=== PATIENT | female | born 1950 | race Caucasian/White ===

== ENCOUNTER 2021-05-10 21:50 | Emergency (ER) | payer MEDICARE ==
[~2021-05-10 21:50] MED LIST: ASPIRIN CHEWABL81 MG PO; ATIVAN1 MG PO; CARAFATE1 GM PO; COLCHICINE 0.60.6 MG PO; DEXILANT60 MG PO; FEOSOL325 MG PO; FUROSEMIDE20 MG PO; IMDUR ER TAB 3030 MG PO; IPRAT-ALBUT 0.5-3 ML NEB; K-DUR TAB 10 M10 MEQ PO; LASIX20 MG PO; LASIX40 MG PO; LISINOPRIL-HCT1 EAC1 PO; LOPRESSOR 25 MG25 MG PO; MYCOSTATIN100000 UTS PO; NORVASC 5 MG TAB5 MG PO; OXYCODONE HCL10 MG PO; PRAVACHOL20 MG PO; PRINIVIL5 MG PO; PROTONIX40 MG PO; ZANAFLEX4 MG PO; ZANTAC150 MG PO; ZOLOFT100 MG PO; ZYLOPRIM 300 M300 MG PO
[2021-05-10 23:35] LABS: HEMOGLOBIN 14.3 gm/dl (12.3-15.3); RED BLOOD COUNT 4.86 M/UL (4.00-5.10); WHITE BLOOD COUNT 13.3 K/UL (4.5-11.0)
[2021-05-11 00:03] LABS: BUN/CREATININE RATIO 17 (0-10)
== END 2021-05-11 02:05 | disposition home or self-care (01) ==
LOC: ER1 21:50
PROVIDERS: Physician Assistant
DX: S01.01XA Laceration without foreign body of scalp, initial encounter (principal); R55 Syncope and collapse; E86.0 Dehydration; X58.XXXA Exposure to other specified factors, initial encounter; Z88.0 Allergy status to penicillin; Z88.2 Allergy status to sulfonamides; Z79.82 Long term (current) use of aspirin; Z79.899 Other long term (current) drug therapy
CPT/HCPCS: 12001; 70450; 71045; 72125; 73502; 80053; 82550; 82553; 83874; 84484; 85025; 93005; 99284

== ENCOUNTER 2021-10-10 17:56 | Emergency (ER) | payer MEDICARE ==
[2021-10-10 20:03] LABS: HEMOGLOBIN 14.9 gm/dl (12.3-15.3); RED BLOOD COUNT 5.19 M/UL (4.00-5.10)
[2021-10-13] MEDS ORDERED: FUROSEMIDE20 MG PO (16:58)
[2021-10-13] MEDS ORDERED: CYMBALTA60 MG PO (16:58)
[2021-10-13] MEDS ORDERED: HYDRALAZINE HCL25 MG PO (16:58)
[2021-10-13] MEDS ORDERED: CARAFATE1 GM PO (16:59)
[2021-10-13] MEDS ORDERED: AMLODIPINE BESY10 MG PO (16:59)
[2021-10-13] MEDS ORDERED: ATIVAN1 MG PO (16:59)
[2021-10-13] MEDS ORDERED: LISINOPRIL20 MG PO (16:59)
[2021-10-13] MEDS ORDERED: LOPRESSOR 25 MG25 MG PO ×2 (17:00→17:01)
[2021-10-13] MEDS ORDERED: ELDERBERRY-VIT1 EACH PO (17:01)
[2021-10-13] MEDS ORDERED: ALIGN4 MG PO (17:01)
== END 2021-10-10 23:45 | disposition home or self-care (01) ==
LOC: ER1 17:56
PROVIDERS: Family Medicine
DX: S52.501A Unspecified fracture of the lower end of right radius, initial encounter for closed fracture (principal); S52.601A Unspecified fracture of lower end of right ulna, initial encounter for closed fracture; I10 Essential (primary) hypertension; F41.9 Anxiety disorder, unspecified; D72.829 Elevated white blood cell count, unspecified; F11.20 Opioid dependence, uncomplicated; M54.50 Low back pain, unspecified; G89.29 Other chronic pain; W11.XXXA Fall on and from ladder, initial encounter; Y92.009 Unspecified place in unspecified non-institutional (private) residence as the place of occurrence of the external cause
CPT/HCPCS: 25605; 70450; 71045; 72125; 72131; 73080; 73100; 73110; 80053; 81001; 82550; 82553; 84484; 85025; 99152; 99284; J2270; J2405; J2704

== ENCOUNTER → 2021-10-16 | Day surgery (SDC) | payer MEDICARE ==
[~2021-10-16] VITALS: Ht 165.1 cm; Wt 86.2 kg
[~2021-10-16] MED LIST changes: +ALIGN4 MG PO; +AMLODIPINE BESY10 MG PO; +CYMBALTA60 MG PO; +ELDERBERRY-VIT1 EACH PO; +HYDRALAZINE HCL25 MG PO; +HYDRALAZINE HCL50 MG PO; +HYDROCODON-ACE1 EAC2 PO; +LEVOFLOXACIN500 MG PO; +LISINOPRIL20 MG PO
[2021-10-16 07:25] LABS: BUN/CREATININE RATIO 15 (0-10)
== END | disposition home or self-care (01) ==
LOC: OR 06:00
PROVIDERS: Orthopaedic Surgery
DX: S52.571A Other intraarticular fracture of lower end of right radius, initial encounter for closed fracture (principal); S52.601A Unspecified fracture of lower end of right ulna, initial encounter for closed fracture; W11.XXXA Fall on and from ladder, initial encounter; G89.18 Other acute postprocedural pain; I25.10 Atherosclerotic heart disease of native coronary artery without angina pectoris; I11.0 Hypertensive heart disease with heart failure; I50.9 Heart failure, unspecified; E78.5 Hyperlipidemia, unspecified; K21.9 Gastro-esophageal reflux disease without esophagitis; E66.9 Obesity, unspecified; Z88.0 Allergy status to penicillin; Z79.899 Other long term (current) drug therapy
CPT/HCPCS: 36415; 73110; 76000; 80048; C1713; J0592; J0690; J1100; J1170; J2405; J2704; J2795; J3010